=== PATIENT | female | born 1990 | race Caucasian/White ===

== ENCOUNTER 2017-10-15 10:33 | Emergency (ER) | payer MEDICAID ==
[~2017-10-15] VITALS: Ht 157.5 cm; Wt 54.4 kg
[~2017-10-15 10:33] MED LIST: IBUP600 PO
[2017-10-15 11:40] LABS: Calcium, Ionized (POC) 1.16 mmol/L (1.10-1.46); Chloride (POC) 99 mmol/L (98-108); Creatinine (POC) 0.6 mg/dL (0.6-1.0); Glucose (ISTAT POC) 117 mg/dL (70-99); Hemoglobin (POC) 14.6 g/dL (12.0-16.0); Potassium (POC) 3.2 mmol/L (3.5-5.5); Sodium (POC) 140 mmol/L (135-148); Total CO2 (POC) 25 mmol/L (21-32)
[2017-10-15] MEDS ORDERED: Zofran Odt8 MG SL (12:59)
== END 2017-10-15 13:14 | disposition home or self-care (01) ==
LOC: ER 10:33
PROVIDERS: Physician Assistant
DX: O21.9 Vomiting of pregnancy, unspecified (principal); Z3A.01 Less than 8 weeks gestation of pregnancy
CPT/HCPCS: 36415; 80047; 85014; 96360; 99283; J7030

== ENCOUNTER → 2017-11-29 | Outpatient (CLI) | payer MEDICAID ==
[~2017-11-29] MED LIST changes: +Zofran Odt8 MG SL
[2017-12-02 06:28] LABS: CHLAMYDIA TRACHOMATIS, NAA Negative (Negative); NEISSERIA GONORRHOEAE, NAA Negative (Negative)
== END | disposition home or self-care (01) ==
LOC: LAB 18:01 → LAB SHORT 18:01
PROVIDERS: Obstetrics & Gynecology
DX: O99.89 Other specified diseases and conditions complicating pregnancy, childbirth and the puerperium (principal); R30.0 Dysuria
CPT/HCPCS: 87086

== ENCOUNTER 2018-02-19 17:50 | Emergency (ER) | payer OTHER ==
[~2018-02-19] VITALS: Ht 157.5 cm; Wt 57.1 kg
[2018-02-19 18:50] LABS: BASOPHILS ABSOLUTE AUTO 0.02 K/mm3 (0.00-0.23); BASOPHILS PERCENT AUTO 0 % (0-2); EOSINOPHILS ABSOLUTE AUTO 0.01 K/mm3 (0.00-0.68); EOSINOPHILS PERCENT AUTO 0 % (0-6); Hematocrit 37.5 % (33.0-51.0); Hemoglobin 12.7 g/dL (11.5-16.0); IMMATURE GRAN ABSOLUTE AUTO 0.11 K/mm3 (0.00-0.10); IMMATURE GRAN PERCENT AUTO 1 % (0-1); LYMPHOCYTES ABSOLUTE AUTO 2.16 K/mm3 (0.84-5.20); LYMPHOCYTES PERCENT AUTO 13 % (21-46); MONOCYTES ABSOLUTE AUTO 0.85 K/mm3 (0.16-1.47); MONOCYTES PERCENT AUTO 5 % (4-13); Mean Corpuscular HGB 31.2 pg (26.0-34.0); Mean Corpuscular HGB Conc 33.9 g/dL (31.5-36.5); Mean Corpuscular Volume 92 fL (80-100); Mean Platelet Volume 8.3 fL (9.1-12.4); NEUTROPHILS ABSOLUTE AUTO 13.88 K/mm3 (1.96-9.15); NEUTROPHILS PERCENT AUTO 82 % (41-73); Platelet Count 404 K/mm3 (150-400); RDW Coefficient Variation 11.9 % (11.7-14.2); RDW Standard Deviation 39.9 fL (35.1-46.3); Red Blood Cell Count 4.07 M/mm3 (3.80-5.20); White Blood Cell Count 17.03 K/mm3 (4.00-11.30)
[2018-02-19 18:52] LABS: Alanine Aminotransfer (ALT/SGP 13 U/L (12-78); Albumin, Blood 3.4 g/dL (3.4-5.0); Albumin/Globulin Ratio 0.7 (0.8-1.8); Alk Phos 70 U/L (50-136); Anion Gap 10 mmol/L (6-16); Aspartate Aminotrans (AST/SGOT 15 U/L (12-37); Bilirubin, Total 0.3 mg/dL (0.1-1.0); Blood Urea Nitrogen 5 mg/dL (8-24); Bun/Creatinine Ratio 10.5 (12.0-20.0); CO2, Blood 26 mmol/L (21-32); Calcium, Blood 8.9 mg/dL (8.5-10.1); Chloride, Blood 101 mmol/L (98-108); Creatinine, Blood 0.47 mg/dL (0.40-1.00); Globulin, Blood 4.6 g/dL (2.2-4.0); Glomerular Filtration Rate >60 (60-); Glucose, Blood 95 mg/dL (70-99); Potassium, Blood 3.4 mmol/L (3.5-5.5); Sodium, Blood 137 mmol/L (136-145)
[2018-02-19 19:40] LABS: Source, Urine Clean Catch
[2018-02-19 20:02] LABS: Bilirubin, Urine Neg (Neg); Blood, Urine 1+ (Neg); Glucose Qualitative, Urine Neg (Neg); Ketones, Urine 4+ (Neg); Leukocyte Esterase, Urine 1+ (Neg); Nitrite, Urine Neg (Neg); Protein, Urine 2+ (Neg); Specific Gravity, Urine 1.015 (1.003-1.022); Urobilinogen, Urine NORM (Normal)
[2018-02-19 20:22] LABS: Appearance, Urine Clear (Clear); Color, Urine Yellow (P-Yellow)
[2018-02-19 20:23] LABS: Red Blood Cells, Urine 0-2 /hpf (0-2); Squamous Epithelial Cells Few /hpf (Few)
[2018-02-19 20:24] LABS: Bacteria Mod /hpf; Mucus Mod (0-Heavy)
[2018-02-19] MEDS ORDERED: PROC25S PR (20:48)
[2018-02-19] MEDS ORDERED: Macrobid 100 M100 MG PO (20:48)
== END 2018-02-19 21:00 | disposition home or self-care (01) ==
LOC: ER 17:50
PROVIDERS: Internal Medicine
DX: O99.282 Endocrine, nutritional and metabolic diseases complicating pregnancy, second trimester (principal); E86.0 Dehydration; O99.89 Other specified diseases and conditions complicating pregnancy, childbirth and the puerperium; R11.2 Nausea with vomiting, unspecified; B96.89 Other specified bacterial agents as the cause of diseases classified elsewhere; Z3A.24 24 weeks gestation of pregnancy
CPT/HCPCS: 80053; 81001; 85025; 87086; 96361; 96374; 96375; 99284-25; J0780; J3490; J7120

== ENCOUNTER → 2018-05-11 | Outpatient (CLI) | payer OTHER ==
[~2018-05-11] MED LIST changes: +ACETAMINOPHEN500 MG PO; +Crutch1 EACH MISC; +Macrobid 100 M100 MG PO; +PROC25S PR
== END | disposition home or self-care (01) ==
LOC: LAB 17:36 → LAB SHORT 17:36
DX: Z34.83 Encounter for supervision of other normal pregnancy, third trimester (principal); Z3A.35 35 weeks gestation of pregnancy
CPT/HCPCS: 87081; 87653

== ENCOUNTER 2018-05-25 18:30 | Inpatient (IN) | payer OTHER ==
[~2018-05-25] VITALS: Ht 157.5 cm; Wt 53.0 kg
[2018-05-25 19:41] LABS: BASOPHILS ABSOLUTE AUTO 0.02 K/mm3 (0.00-0.23); BASOPHILS PERCENT AUTO 0 % (0-2); EOSINOPHILS ABSOLUTE AUTO 0.04 K/mm3 (0.00-0.68); EOSINOPHILS PERCENT AUTO 0 % (0-6); Hematocrit 34.1 % (33.0-51.0); Hemoglobin 11.5 g/dL (11.5-16.0); IMMATURE GRAN ABSOLUTE AUTO 0.06 K/mm3 (0.00-0.10); IMMATURE GRAN PERCENT AUTO 1 % (0-1); LYMPHOCYTES ABSOLUTE AUTO 2.58 K/mm3 (0.84-5.20); LYMPHOCYTES PERCENT AUTO 23 % (21-46); MONOCYTES ABSOLUTE AUTO 0.73 K/mm3 (0.16-1.47); MONOCYTES PERCENT AUTO 7 % (4-13); Mean Corpuscular HGB 31.3 pg (26.0-34.0); Mean Corpuscular HGB Conc 33.7 g/dL (31.5-36.5); Mean Corpuscular Volume 93 fL (80-100); Mean Platelet Volume 8.5 fL (9.1-12.4); NEUTROPHILS ABSOLUTE AUTO 7.77 K/mm3 (1.96-9.15); NEUTROPHILS PERCENT AUTO 69 % (41-73); Platelet Count 306 K/mm3 (150-400); RDW Coefficient Variation 13.5 % (11.7-14.2); RDW Standard Deviation 44.9 fL (35.1-46.3); Red Blood Cell Count 3.68 M/mm3 (3.80-5.20)
[2018-05-26 06:11] LABS: BASOPHILS ABSOLUTE AUTO 0.04 K/mm3 (0.00-0.23); BASOPHILS PERCENT AUTO 0 % (0-2); EOSINOPHILS ABSOLUTE AUTO 0.04 K/mm3 (0.00-0.68); EOSINOPHILS PERCENT AUTO 0 % (0-6); Hematocrit 31.7 % (33.0-51.0); Hemoglobin 10.4 g/dL (11.5-16.0); IMMATURE GRAN ABSOLUTE AUTO 0.05 K/mm3 (0.00-0.10); IMMATURE GRAN PERCENT AUTO 0 % (0-1); LYMPHOCYTES ABSOLUTE AUTO 2.73 K/mm3 (0.84-5.20); LYMPHOCYTES PERCENT AUTO 23 % (21-46); MONOCYTES ABSOLUTE AUTO 0.71 K/mm3 (0.16-1.47); MONOCYTES PERCENT AUTO 6 % (4-13); Mean Corpuscular HGB 31.1 pg (26.0-34.0); Mean Corpuscular HGB Conc 32.8 g/dL (31.5-36.5); Mean Corpuscular Volume 95 fL (80-100); Mean Platelet Volume 8.3 fL (9.1-12.4); NEUTROPHILS ABSOLUTE AUTO 8.22 K/mm3 (1.96-9.15); NEUTROPHILS PERCENT AUTO 70 % (41-73); Platelet Count 228 K/mm3 (150-400); RDW Coefficient Variation 13.4 % (11.7-14.2); RDW Standard Deviation 45.2 fL (35.1-46.3); Red Blood Cell Count 3.34 M/mm3 (3.80-5.20); White Blood Cell Count 11.79 K/mm3 (4.00-11.30)
--- NOTE | 2018-05-26 14:00 | NUR ---
ASSUMED CARE AT THIS TIME. REPORT RECIEVED FROM RADHA RODRIGUEZ.
--- NOTE | 2018-05-26 14:29 | NUR ---
report to APARNA rn
--- NOTE | 2018-05-26 22:28 | NUR ---
PATIENT STATED SHE WAS SWEATY AND COLD. TEMP WAS 97.1. LINENS WERE CHANGED AND THERMOSTAT TURNED UP.
--- NOTE | 2018-05-27 06:42 | NUR ---
OFFERED SUPPLEMENTATION AFTER DISCUSSING 8% WEIGHT LOSS WITH SENIOR SALES EXECUTIVE. PATIENT DECLINED AT THIS TIME.
[2018-05-27] MEDS ORDERED: IBUP800 PO (11:40)
--- NOTE | 2018-05-27 16:38 | NUR ---
DISCHARGE SUMMARY PT DISCHARGED TO HOME. PT EDUCATED ON ALL DISCHARGE TEACHING MATERIAL. PT EXPRESSED UNDERSTANDING OF CONTENT. ALL QUESIONS ANSWERED. IV REMOVED AND BELONGINGS RETURNED. CARSEAT CHALLENGE COMPLETED AND PASSED, SEE VS. FAMILY INSTRUCTED TO FOLLOW UP AT PP, OB AND ANGLE SHEARER. PT ESCORTED OUT WITH [facility]ILDC[facility] ATTENDANT ESCORT
== END 2018-05-27 15:10 | disposition home or self-care (01) | DRG 807 ==
LOC: OBS 18:30 → BC 18:32 → OBS 19:06 → BC 19:07
PROVIDERS: ADMIT Obstetrics & Gynecology
PROC: 10E0XZZ Delivery of Products of Conception, External Approach (ICD-10-PCS; principal; 2018-05-26)
PROC: 3E0R3BZ Introduction of Anesthetic Agent into Spinal Canal, Percutaneous Approach (ICD-10-PCS; 2018-05-26)
DX: O80 Encounter for full-term uncomplicated delivery (principal); Z37.0 Single live birth; Z3A.37 37 weeks gestation of pregnancy
CPT/HCPCS: 36415; 51702; 59025; 85025; J1885; J2405; J2590; J7120

== ENCOUNTER → 2018-08-01 | Outpatient (CLI) | payer OTHER ==
[~2018-08-01] MED LIST changes: +IBUP800 PO
== END | disposition home or self-care (01) ==
LOC: LAB EV 09:00
DX: Z01.812 Encounter for preprocedural laboratory examination (principal); M24.3 Pathological dislocation of joint, not elsewhere classified
CPT/HCPCS: 81025

== ENCOUNTER 2018-08-02 12:18 | Day surgery (SDC) | payer OTHER ==
--- NOTE | 2018-08-02 12:38 | NUR ---
08/02/18 1238 Rodriguez Robbins PATIENT ATE AT 0930 SO CASE WAS CANCELLED. DR CHIRAG SAHU WILL CALL PATIENT TO RESCHEDULE.
== END 2018-08-02 12:30 | disposition home or self-care (01) ==
LOC: ORSCSDS 12:18
DX: M24.3 Pathological dislocation of joint, not elsewhere classified (principal); Z53.9 Procedure and treatment not carried out, unspecified reason
CPT/HCPCS: J0690; J7120

== ENCOUNTER 2018-08-04 08:07 | Day surgery (SDC) | payer OTHER ==
[~2018-08-04] VITALS: Ht 157.5 cm; Wt 52.2 kg
[2018-08-04] MEDS ORDERED: Verotin-Gr Cap1 EACH PO (08:30)
--- NOTE | 2018-08-04 10:51 | NUR ---
08/04/18 1051 Mary Jo Del Valle V PT RESTING IN RECLINER, CALL LIGHT WITHIN REACH, VSS. PT STATES SHE IS STARTING TO HAVE PAIN BUT REFUSES PAIN MEDS. [facility] WHO [facility] ASS[facility] CARE OF PT.
== END 2018-08-04 12:30 | disposition home or self-care (01) ==
LOC: ORSCSDS 08:07
PROVIDERS: Podiatrist Foot & Ankle Surgery
PROC: 0SGK04Z Fusion of Right Tarsometatarsal Joint with Internal Fixation Device, Open Approach (ICD-10-PCS; principal; 2018-08-04 09:00)
DX: M24.3 Pathological dislocation of joint, not elsewhere classified (principal)
CPT/HCPCS: A9270-GY; C1713; C1769; J0690; J1100; J2250; J2405; J3010; J7120

== ENCOUNTER → 2019-06-11 | Outpatient (CLI) | payer OTHER ==
[~2019-06-11] MED LIST changes: +Verotin-Gr Cap1 EACH PO
[2019-06-13 15:07] LABS: HPV 16 Negative (Negative); HPV 18 Negative (Negative); HPV OTHER HR TYPES Negative (Negative)
== END | disposition home or self-care (01) ==
LOC: LAB 15:29 → LAB SHORT 15:29
PROVIDERS: Obstetrics & Gynecology
DX: Z12.4 Encounter for screening for malignant neoplasm of cervix (principal)
CPT/HCPCS: 87624; G0123

== ENCOUNTER → 2019-09-07 | Outpatient (CLI) | payer OTHER ==
[2019-09-07 14:23] LABS: BASOPHILS ABSOLUTE AUTO 0.03 K/mm3 (0.00-0.23); BASOPHILS PERCENT AUTO 0 % (0-2); EOSINOPHILS ABSOLUTE AUTO 0.08 K/mm3 (0.00-0.68); EOSINOPHILS PERCENT AUTO 1 % (0-6); Hematocrit 44.3 % (33.0-51.0); Hemoglobin 15.4 g/dL (11.5-16.0); IMMATURE GRAN ABSOLUTE AUTO 0.02 K/mm3 (0.00-0.10); IMMATURE GRAN PERCENT AUTO 0 % (0-1); LYMPHOCYTES ABSOLUTE AUTO 2.38 K/mm3 (0.84-5.20); LYMPHOCYTES PERCENT AUTO 26 % (21-46); MONOCYTES ABSOLUTE AUTO 0.72 K/mm3 (0.16-1.47); MONOCYTES PERCENT AUTO 8 % (4-13); Mean Corpuscular HGB 30.5 pg (26.0-34.0); Mean Corpuscular HGB Conc 34.8 g/dL (31.5-36.5); Mean Corpuscular Volume 88 fL (80-100); Mean Platelet Volume 8.4 fL (9.1-12.4); NEUTROPHILS ABSOLUTE AUTO 5.84 K/mm3 (1.96-9.15); NEUTROPHILS PERCENT AUTO 65 % (41-73); Platelet Count 435 K/mm3 (150-400); RDW Coefficient Variation 11.6 % (11.7-14.2); RDW Standard Deviation 37.2 fL (35.1-46.3); Red Blood Cell Count 5.05 M/mm3 (3.80-5.20); White Blood Cell Count 9.07 K/mm3 (4.00-11.30)
[2019-09-07 14:41] LABS: Anion Gap 10 mmol/L (6-16); Blood Urea Nitrogen 5 mg/dL (8-24); Bun/Creatinine Ratio 4.9 (12.0-20.0); CO2, Blood 33 mmol/L (21-32); Calcium, Blood 9.2 mg/dL (8.5-10.1); Chloride, Blood 92 mmol/L (98-108); Creatinine, Blood 1.03 mg/dL (0.40-1.00); Glomerular Filtration Rate >60 (60-); Glucose, Blood 173 mg/dL (70-99); Potassium, Blood 2.7 mmol/L (3.5-5.5); Sodium, Blood 135 mmol/L (136-145); Thyroid Stimulating Hormone 0.435 uIU/mL (0.360-4.800)
== END | disposition home or self-care (01) ==
LOC: LAB SHORT 14:18 → LAB EV 14:18
PROVIDERS: Physician Assistant Surgical
DX: R11.2 Nausea with vomiting, unspecified (principal)
CPT/HCPCS: 80048; 84443; 85025

== ENCOUNTER → 2022-05-28 | Outpatient (CLI) | payer OTHER ==
[2022-06-07 14:08] LABS: HPV 16 Negative (Negative); HPV 18 Negative (Negative); HPV OTHER HR TYPES Negative (Negative)
== END ==
LOC: LAB 15:40 → LAB SHORT 15:40
PROVIDERS: Family Medicine
DX: Z12.4 Encounter for screening for malignant neoplasm of cervix (principal)
CPT/HCPCS: 87624; G0145

== ENCOUNTER 2022-11-01 14:39 | Emergency (ER) | payer OTHER ==
[~2022-11-01] VITALS: Ht 157.5 cm; Wt 59.0 kg
[2022-11-01 15:09] VITALS: BP 118/92
[2022-11-01 15:38] LABS: BASOPHILS ABSOLUTE AUTO 0.04 K/mm3 (0.00-0.23); BASOPHILS PERCENT AUTO 0 % (0-2); EOSINOPHILS ABSOLUTE AUTO 0.02 K/mm3 (0.00-0.68); EOSINOPHILS PERCENT AUTO 0 % (0-6); Hematocrit 41.7 % (33.0-51.0); Hemoglobin 14.9 g/dL (11.5-16.0); IMMATURE GRAN PERCENT AUTO 1 % (0-1); LYMPHOCYTES ABSOLUTE AUTO 1.84 K/mm3 (0.84-5.20); LYMPHOCYTES PERCENT AUTO 10 % (21-46); MONOCYTES ABSOLUTE AUTO 1.22 K/mm3 (0.16-1.47); MONOCYTES PERCENT AUTO 6 % (4-13); Mean Corpuscular HGB 30.7 pg (26.0-34.0); Mean Corpuscular HGB Conc 35.7 g/dL (31.5-36.5); Mean Corpuscular Volume 86 fL (80-100); Mean Platelet Volume 8.1 fL (9.1-12.4); NEUTROPHILS ABSOLUTE AUTO 16.05 K/mm3 (1.96-9.15); NEUTROPHILS PERCENT AUTO 83 % (41-73); Platelet Count 497 K/mm3 (150-400); RDW Coefficient Variation 11.4 % (11.7-14.2); RDW Standard Deviation 35.8 fL (35.1-46.3); Red Blood Cell Count 4.86 M/mm3 (3.80-5.20); White Blood Cell Count 19.27 K/mm3 (4.00-11.30)
[2022-11-01 15:57] LABS: Albumin/Globulin Ratio 0.9 (0.8-1.8); Bilirubin, Total 0.8 mg/dL (0.1-1.0); Bun/Creatinine Ratio 22.4 (12.0-20.0); Calcium, Blood 9.6 mg/dL (8.5-10.1); Creatinine, Blood 0.67 mg/dL (0.40-1.00); Globulin, Blood 4.4 g/dL (2.2-4.0); Total Protein, Blood 8.4 g/dL (6.4-8.2)
[2022-11-01 16:33] LABS: Source, Urine Clean Catch
[2022-11-01 16:44] LABS: Appearance, Urine Clear (Clear); Bilirubin, Urine Neg (Neg); Blood, Urine 3+ (Neg); Color, Urine Yellow (P-Yellow); Glucose Qualitative, Urine Neg (Neg); Ketones, Urine 2+ (Neg); Leukocyte Esterase, Urine Neg (Neg); Nitrite, Urine Neg (Neg); Protein, Urine 2+ (Neg); Specific Gravity, Urine 1.015 (1.003-1.022); Urobilinogen, Urine 1+ (Normal)
[2022-11-01 17:10] LABS: Mucus Light (0-Heavy); White Blood Cells, Urine 0-2 /hpf (0-5)
[2022-11-01 17:11] LABS: Bacteria Few /hpf; Red Blood Cells, Urine 0-2 /hpf (0-2); Squamous Epithelial Cells Few /hpf (Few)
[2022-11-01] MEDS ORDERED: ONDA4ODT MM (18:07)
[2022-11-01] MEDS ORDERED: PROM12.5S PR (18:07)
== END 2022-11-01 18:20 | disposition home or self-care (01) ==
LOC: ER 14:39
PROVIDERS: Physician Assistant; Student in an Organized Health Care Education/Training Program
DX: O21.0 Mild hyperemesis gravidarum (principal); Z3A.12 12 weeks gestation of pregnancy
CPT/HCPCS: 76801; 80053; 81001; 84702; 85025; 96361; 96374; 99284-25; A9270; J2405; J7030

== ENCOUNTER 2022-12-08 01:12 | Day surgery (SDC) | payer OTHER ==
[~2022-12-08 01:12] MED LIST changes: +ONDA4ODT MM; +PROM12.5S PR
[2022-12-08 13:22] VITALS: BP 125/93
== END 2022-12-08 15:00 | disposition home or self-care (01) ==
LOC: ATC 01:12
DX: O21.0 Mild hyperemesis gravidarum (principal); Z3A.00 Weeks of gestation of pregnancy not specified
CPT/HCPCS: 96365; 96368; 96372; 96375; J2405; J3411; J3415; J3420; J3475; J7030

== ENCOUNTER 2023-01-28 10:34 | Day surgery (SDC) | payer OTHER ==
[2023-01-28 11:34] VITALS: BP 122/78
== END 2023-01-28 12:51 | disposition home or self-care (01) ==
LOC: ATC 10:34
DX: O21.0 Mild hyperemesis gravidarum (principal); Z3A.00 Weeks of gestation of pregnancy not specified
CPT/HCPCS: 96365; 96367; 96368; 96372; 96375; J2405; J3411; J3415; J3420; J3475; J7030

== ENCOUNTER 2023-06-04 05:11 | Inpatient (IN) | payer OTHER ==
[2023-06-04] VITALS (40 sets, daily range): BP systolic 117–198; BP diastolic 67–116
[~2023-06-04] VITALS: Ht 157.5 cm; Wt 54.5 kg
[2023-06-04 06:25] LABS: BASOPHILS ABSOLUTE AUTO 0.04 K/mm3 (0.00-0.23); BASOPHILS PERCENT AUTO 0 % (0-2); EOSINOPHILS ABSOLUTE AUTO 0.02 K/mm3 (0.00-0.68); EOSINOPHILS PERCENT AUTO 0 % (0-6); Hematocrit 36.9 % (33.0-51.0); Hemoglobin 12.8 g/dL (11.5-16.0); IMMATURE GRAN ABSOLUTE AUTO 0.07 K/mm3 (0.00-0.10); IMMATURE GRAN PERCENT AUTO 1 % (0-1); LYMPHOCYTES PERCENT AUTO 30 % (21-46); MONOCYTES ABSOLUTE AUTO 0.87 K/mm3 (0.16-1.47); MONOCYTES PERCENT AUTO 6 % (4-13); Mean Corpuscular HGB 29.4 pg (26.0-34.0); Mean Corpuscular HGB Conc 34.7 g/dL (31.5-36.5); Mean Corpuscular Volume 85 fL (80-100); Mean Platelet Volume 9.4 fL (9.1-12.4); NEUTROPHILS ABSOLUTE AUTO 8.79 K/mm3 (1.96-9.15); NEUTROPHILS PERCENT AUTO 63 % (41-73); Platelet Count 426 K/mm3 (150-400); RDW Coefficient Variation 11.9 % (11.7-14.2); RDW Standard Deviation 36.2 fL (35.1-46.3); Red Blood Cell Count 4.36 M/mm3 (3.80-5.20); White Blood Cell Count 13.99 K/mm3 (4.00-11.30)
--- NOTE | 2023-06-04 10:11 | NUR ---
on arrival to shift patient was very hypertensive and per erika barth rn was on the labetalol protocol, my first bp on assessment was trending higher than even previously. findings reported to dr huggins, orders to do 80 mg labetalol and if still havent decreased to do 10 mg iv hydralazine and start mag protocol with 4 gram loading dose. As i started pushing the 80 mg ordered iv labetalol, patients pulse decreased to 48. I stopped giving her the labetalol (she got a total of 40 from me) and I proceeded to give her 10 mg iv hydralazine instead due to bradycardia. Mag loading dose of 4 mg started. Patient reported 9/10 headache and seeing lots of floaters in her vision and that she felt really off and sick. After hydralazine, bp has trended down and patient reports feeling much better and that the headache has subsided. per dr huggins the patient can eat a regular diet on magnesium. Per bhavna she is also allowed to have a alejandro catheter if she doesnt want to get out of bed or she can get up with assist. Patient opts to get up with assistance. Bed bath given, pas on, continuous pulse ox on and mother has been bonding with since and has breastfed.
[2023-06-04] MEDS ORDERED: PRENATAL TABLE1 EAC2 PO (11:23)
[2023-06-04] MEDS ORDERED: IBUP800 PO (11:23)
[2023-06-04] MEDS ORDERED: Colace100 MG PO (11:23)
--- NOTE | 2023-06-04 11:58 | NUR ---
dtrs +1 no clonus, patient remains stable on magnesium. denies headache blurry vision or floaters, just feels very exhausted. no sob. mag continues on 2gram/hr
--- NOTE | 2023-06-04 14:10 | NUR ---
DTRS REMAINS 2+ NO CLONUS. PT DOING WELL. NEW ORDERS FROM [place] THAT PT CAN BE 2:1 STAFFING AND HAVE BPS Q2 HOURS.
[2023-06-05] VITALS (34 sets, daily range): BP systolic 109–174; BP diastolic 66–108
[2023-06-05 06:07] LABS: BASOPHILS ABSOLUTE AUTO 0.04 K/mm3 (0.00-0.23); BASOPHILS PERCENT AUTO 0 % (0-2); EOSINOPHILS PERCENT AUTO 1 % (0-6); Hematocrit 28.8 % (33.0-51.0); Hemoglobin 9.8 g/dL (11.5-16.0); IMMATURE GRAN ABSOLUTE AUTO 0.07 K/mm3 (0.00-0.10); IMMATURE GRAN PERCENT AUTO 1 % (0-1); LYMPHOCYTES ABSOLUTE AUTO 3.34 K/mm3 (0.84-5.20); LYMPHOCYTES PERCENT AUTO 25 % (21-46); MONOCYTES ABSOLUTE AUTO 0.73 K/mm3 (0.16-1.47); MONOCYTES PERCENT AUTO 5 % (4-13); Mean Corpuscular HGB 29.8 pg (26.0-34.0); Mean Corpuscular Volume 88 fL (80-100); NEUTROPHILS ABSOLUTE AUTO 9.32 K/mm3 (1.96-9.15); NEUTROPHILS PERCENT AUTO 69 % (41-73); Platelet Count 312 K/mm3 (150-400); RDW Coefficient Variation 12.2 % (11.7-14.2); RDW Standard Deviation 38.7 fL (35.1-46.3); Red Blood Cell Count 3.29 M/mm3 (3.80-5.20)
--- NOTE | 2023-06-05 06:32 | NUR ---
MAG OFF AT 0620.
[2023-06-05 06:39] LABS: Albumin, Blood 2.1 g/dL (3.4-5.0); Albumin/Globulin Ratio 0.6 (0.8-1.8); Bilirubin, Total 0.1 mg/dL (0.1-1.0); Bun/Creatinine Ratio 9.9 (12.0-20.0); Calcium, Blood 6.9 mg/dL (8.5-10.1); Creatinine, Blood 0.51 mg/dL (0.40-1.00); Globulin, Blood 3.3 g/dL (2.2-4.0); Potassium, Blood 3.7 mmol/L (3.5-5.5); Total Protein, Blood 5.4 g/dL (6.4-8.2)
--- NOTE | 2023-06-05 07:58 | NUR ---
pt feeling much better now that shes off mag. denies headache blurry vision or epigastric pain. getting up to BR. still having labile pressures. will discuss with provider on rounds regarding if po antihypertensives need started prior to possible dc. and taking care of well.
[2023-06-05] MEDS ORDERED: NIFE60ER PO (11:38)
--- NOTE | 2023-06-05 14:38 | NUR ---
Patient dc instructions reviewed at length. specifically regarding pre-eclampsia and blood pressure and when to go to ER if needed. prescription for nifedipine 60 mg xl called in to [facility]. Patient is going to return to [facility] on Tuesday at 1pm with cassandra tate rn. Comfort will also call providers office tomorrow and make follow up appointment at office in addition. Comfort verbalizes understanding and questions answered. pt removed own iv.
--- NOTE | 2023-06-05 16:05 | NUR ---
PT CALLED TO BE WALKED OUT AND STATED THAT SHE WAS HAVING SOME CHEST PAIN AND HEAVINESS AND SOB. LAYED HER BACK IN BED AND SHE SAID SHE WAS SEEING STARS AND DIZZY. BP 130S/80S, TYLENOL GIVEN PER REQUEST. PULSE OX ON AND PT TACHYCARDIC AND ANXIOUS. DR KAYE CALLED AND NOTIFIED AND DC ORDER CANCELLED. PT PUT TO BED AND TUCKED AWAY AND ENCOURAGED TO REST AND PUSH FLUIDS. PT BOYFRIEND AND OTHER CHILDREN AT [employer] REQUEST THAT WE TAKE TO DESK FOR SOME UNINTERRUPTED SLEEP. WILL KEEP VS CYCLING.
--- NOTE | 2023-06-05 17:57 | NUR ---
patient was just about to be walked out this afternoon and stated that she was feeling sob, anxious, chest pain and having pain. she started to see spots she said. vital signs taken and was tachycardic, hypertensive sp02 100% on RA. this happened when her boyfriend dale was in the room with the other 2 children. new orders for ativan, pt requested that her boyfriend and daughters leave so she can try to rest. gave nursing staff her to take care of so she could try to settle down. pt also requested zofran and was nauseas and wanted tylenol and motrin for her back and core and head pain and heavy chestness. she was moaning back and forth saying that she was uncomfortable and her back was hurting and felt like her bed had something in it, nothing in the bed and pt given multiple pillows to make her more comfortable and warm blankets given. dr huggins in to see patient, new orders for more ativan and also to do a ekg. marly supervisor motor vehicle assembly at , ekg revealed sinus tachy. after patient received 2 mg ativan she feels better and is sleepy and wants to sleep now. she said her chest pain has resolved and does not feel as heavy chested. this event all occured when her boyfriend came in to the hospital. he has not been at the hospital hardly at all during [facility] stay and when I went to go sign paternity papers with her and Dale she got extremely anxious and figidity. she then wanted to hold off on discharge so the girls could go get snacks, when she called back to walk out the door she then revealed that she was dizzy and symptomatic. She stated that she was very anxious about going home and that she got angry at Dale with the girls. dale remained in the room on his phone not talking during this event. Dr huggins aware of this. Pt. asked if she felt safe at home and she said yes she did and that Dale was a good dad and it wasnt that she was just anxious with the girls and him in the room. Pt. sleeping soundly with cont. pulse ox on and bps cycling q15. report given to char cobb rn to assume care.
--- NOTE | 2023-06-05 18:00 | NUR ---
ASSUMED CARE OF PT FROM A [facility]ION RN, PT HAS BEEN RESTING SINCE ASSUMING CARE.
[2023-06-06 05:01] VITALS: BP 154/96
[2023-06-06 05:17] VITALS: BP 119/75
[2023-06-06 08:16] VITALS: BP 131/88
--- NOTE | 2023-06-06 09:09 | NUR ---
SPOKE TO DR. KAYE REGARDING NIFEDAPINE ORDER PT HAD AN EPISODE OF TACHYCARDIA AND SOME CHEST PAIN YESTERDAY ABOUT 6 HOURS POST NIFEDAPINE XR. THE PEAK OF NIFEDAPINE XR IS 6 HOURS. DISCUSSED HESITATION TO GIVE IT AGAIN TODAY, ORDER FROM DR. KAYE TO HOLD BP MEDS NOW AND CONTINUE TO WATCH. IF PT BECOMES HYPERTENSIVE AGAIN CALL DR. KAYE FOR NEW ORDERS.
[2023-06-06 12:26] VITALS: BP 118/76
[2023-06-06 17:05] VITALS: BP 147/93
[2023-06-06 17:06] VITALS: BP 146/91
--- NOTE | 2023-06-06 17:33 | NUR ---
D/C HOME PATIENT FEELS SAFE GOING HOME WILL CALL IF INSCREASE HEADACHE OR VISUAL DISTURBANCES
== END 2023-06-06 18:50 | disposition home or self-care (01) | DRG 807 ==
LOC: OBS 05:11 → BC 05:11 → OBS 05:30 → BC 05:32
PROVIDERS: ADMIT Obstetrics & Gynecology
PROC: 10E0XZZ Delivery of Products of Conception, External Approach (ICD-10-PCS; principal; 2023-06-04)
PROC: 0KQM0ZZ Repair Perineum Muscle, Open Approach (ICD-10-PCS; 2023-06-04)
DX: O13.4 Gestational [pregnancy-induced] hypertension without significant proteinuria, complicating childbirth (principal); Z37.0 Single live birth; Z3A.39 39 weeks gestation of pregnancy; O14.15 Severe pre-eclampsia, complicating the puerperium; O77.0 Labor and delivery complicated by meconium in amniotic fluid; O69.81X0 Labor and delivery complicated by cord around neck, without compression, not applicable or unspecified; O70.1 Second degree perineal laceration during delivery; O47.1 False labor at or after 37 completed weeks of gestation
CPT/HCPCS: 36415; 59025; 80053; 82570; 84156; 85025; 86850; 86900; 86901; 93005; 93010; 96374; 99214; A9270; J0360; J1885; J2060; J2405; J2590; J3010; J3475; J7120